=== PATIENT | female | born 1980 | race Caucasian/White ===

== ENCOUNTER 2018-04-14 15:37 | Inpatient (IN) ==
[2018-04-14] MEDS ORDERED: Sodium Chlor 0.9% Inj 500 ML IV.SIG PRN (16:29)
[2018-04-14] MEDS ORDERED: Penicillin G Potassium Inj 5,000,000 UNIT in Sodium Chloride 0.9% Inj 100 ML IV.SIG ONE (16:29)
[2018-04-14] MEDS ORDERED: Sod Chloride 0.9% Inj 1,000 ML IV.CONT PRN (16:29)
[2018-04-14] MEDS ORDERED: Naloxone Inj 0.4 MG/ML Vial IV.PUSH PRN ×2 (16:29→21:12)
[2018-04-14] MEDS ORDERED: fentaNYL Citrate Inj 100 MCG/2 ML Ampul IV.PUSH PRN ×2 (16:29)
[2018-04-14] MEDS ORDERED: Oxytocin 30 Units/500ml Premix 30 UNITS/500 ML BAG IV.SIG ONE (16:29)
[2018-04-14] MEDS ORDERED: Citric Acid/Sodium Citrate Liq 30 ML UDC PO SCH (16:30)
--- NOTE | 2018-04-14 16:35 | P.HPOB ---
History of Present Illness Primary Care Physician: No Primary Care Physician Dr. Herndon Chief Complaint: Contractions History of Present Illness: The patient is 38-year-old white female at [address] Herndon at the [facility] and presents complaining of painful contractions that are regular at this time is been going on since this morning, she denies bleeding or leakage of fluid, heart rate tracing is reactive she is amirah every other minute Weeks Gestation:: 37 Para: 1 : 2 Review of Systems All other systems reviewed negative except as stated in HPI PMFSH - Social History I have reviewed the patient's Social History: Yes - Tobacco History Smoking Status: Never smoker - Alcohol History How Often Do You Have a Drink Containing Alcohol: Never - Substance Use History Substance History: No History of Abuse - Travel History History of Recent Travel: No Recent Travel in the [place] Within the Last 8 Weeks: No Recent Travel Out of the Country Within the Last 8 Weeks: No Medications and Allergies Allergies Allergy/AdvReac Type Severity Reaction Status Date / Time zinc AdvReac Intermediate NAUSEA Verified 06/29/17 08:46 zinc oxide AdvReac Intermediate NAUSEA Verified 06/29/17 08:46 Exam Vital signs: Vital Signs 04/14/18 16:10 Temperature 98.6 F Pulse Rate 98 H Respiratory Rate 20 Blood Pressure 140/49 L Intake & Output 04/13/18 04/14/18 04/14/18 18:59 06:59 18:59 Weight 80.286 kg Narrative: GENERAL: Well-nourished, well-developed patient. SKIN: Warm and dry. HEAD: Normocephalic and atraumatic. EYES: No scleral icterus. No injection or drainage. ENT: No nasal drainage noted. Mucous membranes pink. Airway patent. NECK: Supple, trachea midline. No JVD. CARDIOVASCULAR: Regular rate and rhythm without murmurs, gallops, or rubs. RESPIRATORY: Breath sounds equal bilaterally. No accessory muscle use. BREASTS: Bilateral exam showed no masses , no retractions, no nipple discharge. ABDOMEN/GI: Abdomen soft, non-tender, bowel sounds present, no rebound, no guarding Gravid to [37-] weeks size Fundal Height: [37-] GENITOURINARY: External Genitalia: intact and normal in appearance BUS glands: [-] Cervix: [post-] Dilatation: [-4] Effacement: [80-] Station: [-3] Presentation: [vtx-] Membranes: [intact ] Uterine Contractions: [q 2 min-] FHT's: Category: [1-] Baseline: [133-] Reactive: [R-] Variability: [mod-] Decels: [0-] EXTREMITIES: No cyanosis or edema. BACK: Nontender without obvious deformity. No CVA tenderness. NEUROLOGICAL: Awake and alert. Motor and sensory grossly within normal limits. Five out of 5 muscle strength in all muscle groups. Normal speech. Results - Labs Group B Strep: Positive Caprini VTE Risk Assessment Caprini VTE Risk Assessment: No/Low Risk (score <= 1) Caprini Risk Assessment Model: Point Value = 1 Point Value = 2 Point Value = 3 Point Value = 5 Age 41-60 Minor surgery BMI > 25 kg/m2 Swollen legs Varicose veins or History of unexplained or recurrent spontaneous Oral contraceptives or hormone replacement Sepsis (< 1 month) Serious lung disease, including pneumonia (< 1 month) Abnormal pulmonary function Acute myocardial infarction Congestive heart failure (< 1 month) History of inflammatory bowel disease Medical patient at bed rest Age 61-74 Arthroscopic surgery Major open surgery (> 45 min) Laparoscopic surgery (> 45 min) Malignancy Confined to bed (> 72 hours) Immobilizing plaster cast Central venous access Age >= 75 History of VTE Family history of VTE Factor V Leiden Prothrombin [id number] Lupus anticoagulant Anticardiolipin antibodies Elevated serum homocysteine Heparin-induced thrombocytopenia Other congenital or acquired thrombophilia Stroke (< 1 month) Elective arthroplasty Hip, pelvis, or leg fracture Acute spinal cord injury (< 1 month) Prophylaxis Regimen: Total Risk Factor Score Risk Level Prophylaxis Regimen 0-1 Low Early ambulation 2 Moderate Order ONE of the following: *Sequential Compression Device (SCD) *Heparin 5000 units SQ BID 3-4 Higher Order ONE of the following medications: *Heparin 5000 units SQ TID *Enoxaparin/Lovenox 40 mg SQ daily (WT < 150 kg, CrCl > 30 mL/min) *Enoxaparin/Lovenox 30 mg SQ daily (WT < 150 kg, CrCl > 10-29 mL/min) *Enoxaparin/Lovenox 30 mg SQ BID (WT < 150 kg, CrCl > 30 mL/min) AND/OR *Sequential Compression Device (SCD) 5 or more Highest Order ONE of the following medications: *Heparin 5000 units SQ TID (Preferred with Epidurals) *Enoxaparin/Lovenox 40 mg SQ daily (WT < 150 kg, CrCl > 30 mL/min) *Enoxaparin/Lovenox 30 mg SQ daily (WT < 150 kg, CrCl > 10-29 mL/min) *Enoxaparin/Lovenox 30 mg SQ BID (WT < 150 kg, CrCl > 30 mL/min) AND *Sequential Compression Device (SCD) Assessment and Plan - Diagnosis (1) Uterine contractions during Code(s): O62.2 - Other uterine inertia Status: Acute (2) 37 weeks gestation of Code(s): Z3A.37 - 37 weeks gestation of Status: Acute - Plan This multiparous patient is 37 weeks in early labor at this time, cervix is 4/80 /-3/vertex. Contractions are frequent every other minute or so and she says are painful but yet she is able to act like she is not really hurting that much when she is having them. The NST is reactive contractions are regular and her GBS is positive. Plan to admit to the hospital managed augment labor as needed anticipate vaginal delivery will discuss with her private OB doctor
[2018-04-14] MEDS ORDERED: Lidocaaine 1.5%/Epinephrine 1:200,000 PF Inj 5 ML Amp ONE (17:44)
[2018-04-14] MEDS ORDERED: Lidocaine PF 1% Inj 10 ML Amp ONE (17:45)
[2018-04-14 17:50] LABS: Bacteria,Urine Occasional /hpf; Bilirubin,Urine Negative (Negative); Clarity,Urine Clear (Clear); Color,Urine Straw (Yellw/Straw); Glucose,Urine (UA) Negative (Negative); Leukocyte Esterase,Urine Negative (Negative); Nitrite,Urine Negative (Negative); Specific Gravity,Urine 1.005 (1.002-1.035); Squamous Epithelial Cell,Urine 7 /hpf (0-5)
[2018-04-14 17:52] LABS: Amphetamine Urine With Conf Neg (Neg); Benzodiazepine Urine With Conf Neg (Neg)
[2018-04-14] MEDS ORDERED: fentaNYL 2MCG-Bupiv 0.125% Epi 150 ML EPIDURAL ONE (17:53)
[2018-04-14 17:54] LABS: Baso % (Auto) 0.4 % (0.0-2.0); Eos % (Auto) 0.4 % (0.0-4.0); Hematocrit 32.9 % (35.0-46.0); Hemoglobin 11.2 gm/dL (11.6-15.3); Lymph # (Auto) 2.7 th/mm3 (1.0-4.8); Lymph % (Auto) 26.5 % (9.0-44.0); Mean Corpuscular Hemoglobin 29.3 pg (27.0-34.0); Mean Corpuscular Volume 86.2 fL (80.0-100.0); Mean Platelet Volume 9.1 fL (7.0-11.0); Mono # (Auto) 0.5 th/mm3 (0.0-0.9); Mono % (Auto) 5.1 % (0.0-8.0); Neut # (Auto) 6.8 th/mm3 (1.8-7.7); Neut % (Auto) 67.6 % (16.0-70.0); Platelet Count 233 th/mm3 (150-450); Red Blood Count 3.81 mil/mm3 (4.00-5.30); Red Cell Distribution Width 12.4 % (11.6-17.2); White Blood Count 10.1 th/mm3 (4.0-11.0)
--- NOTE | 2018-04-14 18:28 | P.OBLABOR ---
Subjective Interval history: meeting for first time just after epidural placed. She is comfortable. Penicillin ongoing for presumed GBS (was positive with first child) Objective Vital Signs: Vital Signs - 8 hr 04/14/18 16:10 04/14/18 17:48 04/14/18 17:49 Temperature 98.6 F Pulse Rate 98 H 91 H Respiratory Rate 20 18 Blood Pressure 140/49 L 118/69 04/14/18 17:55 04/14/18 18:01 04/14/18 18:07 Temperature Pulse Rate 84 101 H 112 H Respiratory Rate Blood Pressure 130/69 123/64 04/14/18 18:09 04/14/18 18:10 04/14/18 18:15 Temperature Pulse Rate 139 H 112 H Respiratory Rate 18 18 Blood Pressure 105/55 L 113/57 L Objective: 90%/5-6/0 station EFW 7 pounds pelvis proven and clinically adequate strip category one Patient Started Active Labor: Yes Medical Induction of Labor: No Artificial Rupture of Membrane: Yes Artificial ROM Date: 04/14/18 Artificial ROM Time: 18:27 Assessment and Plan - Diagnosis (1) GBS carrier Code(s): Z22.330 - Carrier of Group B streptococcus Status: Acute - Plan This multiparous patient is 37 weeks in early labor at this time, cervix is 4/80 /-3/vertex. Contractions are frequent every other minute or so and she says are painful but yet she is able to act like she is not really hurting that much when she is having them. The NST is reactive contractions are regular and her GBS is positive. Plan to admit to the hospital managed augment labor as needed anticipate vaginal delivery will discuss with her private OB doctor 04/14/18 18:00 anticipate soon
--- NOTE | 2018-04-14 20:06 | P.OBLABOR ---
Subjective Interval history: Has some pain on right side only Objective Vital Signs: Vital Signs - 8 hr 04/14/18 16:10 04/14/18 17:48 04/14/18 17:49 Temperature 98.6 F Pulse Rate 98 H 91 H Respiratory Rate 20 18 Blood Pressure 140/49 L 118/69 04/14/18 17:55 04/14/18 18:01 04/14/18 18:07 Temperature Pulse Rate 84 101 H 112 H Respiratory Rate Blood Pressure 130/69 123/64 04/14/18 18:09 04/14/18 18:10 04/14/18 18:15 Temperature Pulse Rate 139 H 112 H Respiratory Rate 18 18 Blood Pressure 105/55 L 113/57 L 04/14/18 18:30 04/14/18 18:43 04/14/18 19:10 Temperature Pulse Rate 108 H 120 H 92 H Respiratory Rate 18 Blood Pressure 108/70 108/57 L 04/14/18 19:40 04/14/18 19:45 04/14/18 19:50 Temperature Pulse Rate 110 H 100 H 105 H Respiratory Rate Blood Pressure 04/14/18 19:51 04/14/18 19:53 Temperature Pulse Rate 114 H Respiratory Rate 18 Blood Pressure 110/79 Objective: 8-9/100/0 remaining cervix on her right strip category one contractions every 2-3 minutes Assessment and Plan - Diagnosis (1) GBS carrier Code(s): Z22.330 - Carrier of Group B streptococcus Status: Acute - Plan This multiparous patient is 37 weeks in early labor at this time, cervix is 4/80 /-3/vertex. Contractions are frequent every other minute or so and she says are painful but yet she is able to act like she is not really hurting that much when she is having them. The NST is reactive contractions are regular and her GBS is positive. Plan to admit to the hospital managed augment labor as needed anticipate vaginal delivery will discuss with her private OB doctor 04/14/18 18:00 anticipate soon 04/14/18 20:00 delivery soon
[2018-04-14] MEDS ORDERED: Penicillin G Potassium Inj 2,500,000 UNIT in Sodium Chlor 0.9% Inj 100 ML IV.SIG SCH (20:30)
[2018-04-14] MEDS ORDERED: Benzocaine 20% Top Spray 60 ML Can TOPICAL PRN (21:12)
[2018-04-14] MEDS ORDERED: Witch Hazel 50%/Glyderin 12.5% 40 Pad Jar RECTAL PRN (21:12)
[2018-04-14] MEDS ORDERED: Acetaminophen 325 MG Tablet PO PRN (21:12)
[2018-04-14] MEDS ORDERED: Zolpidem Tartrate 5 MG Tablet PO PRN (21:12)
[2018-04-14] MEDS ORDERED: Bisacodyl 10 MG Supp RECTAL PRN (21:12)
[2018-04-14] MEDS ORDERED: Oxytocin 30 Units/500ml Premix 30 UNITS/500 ML BAG IV.CONT PRN (21:12)
--- NOTE | 2018-04-14 21:12 | P.OBDELI ---
Weeks Gestation: 37 Anesthesia: Epidural Episiotomy: none Vaginal Delivery: Normal Presentation: Occiput anterior Nuchal Cord: None Delayed Cord Clamping (45 sec): Yes Estimated blood loss (mL): 200 Infant: Female Female A Infant Delivery Date: 04/14/18 Delivery Time: 21:11 score (1 min): 9 score (5 min): 9 Additional Information: placenta intact with 3 VC CBR kit used for cord blood collection no issues.
[2018-04-14] MEDS ORDERED: fentaNYL Citrate Inj 100 MCG/2 ML Ampul EPIDURAL ONE (21:45)
[2018-04-14] MEDS ORDERED: fentaNYL 2MCG-Bupiv 0.125% Epi 150 ML EPIDURAL PRN (21:45)
--- NOTE | 2018-04-15 07:55 | P.PNOB ---
Subjective Post day: 1 Interval history: doing well, Objective Vital Signs/I&O: Vital Signs 04/14/18 16:10 04/14/18 17:48 04/14/18 17:49 Temperature 98.6 F Pulse Rate 98 H 91 H Respiratory Rate 20 18 Blood Pressure 140/49 L 118/69 04/14/18 17:55 04/14/18 18:01 04/14/18 18:07 Temperature Pulse Rate 84 101 H 112 H Respiratory Rate Blood Pressure 130/69 123/64 04/14/18 18:09 04/14/18 18:10 04/14/18 18:15 Temperature Pulse Rate 139 H 112 H Respiratory Rate 18 18 Blood Pressure 105/55 L 113/57 L 04/14/18 18:30 04/14/18 18:43 04/14/18 19:10 Temperature Pulse Rate 108 H 120 H 92 H Respiratory Rate 18 Blood Pressure 108/70 108/57 L 04/14/18 19:40 04/14/18 19:45 04/14/18 19:50 Temperature Pulse Rate 110 H 100 H 105 H Respiratory Rate Blood Pressure 04/14/18 19:51 04/14/18 19:53 04/14/18 19:55 Temperature Pulse Rate 114 H 108 H Respiratory Rate 18 Blood Pressure 110/79 111/96 H 04/14/18 20:05 04/14/18 20:10 04/14/18 20:25 Temperature Pulse Rate 116 H 99 H 108 H Respiratory Rate Blood Pressure 116/76 04/14/18 20:30 04/14/18 20:35 04/14/18 20:45 Temperature Pulse Rate 109 H 113 H 107 H Respiratory Rate Blood Pressure 118/54 L 04/14/18 20:55 04/14/18 21:15 04/14/18 21:18 Temperature Pulse Rate 169 H 81 Respiratory Rate 18 Blood Pressure 90/45 L 78/56 L 04/14/18 21:30 04/14/18 21:45 04/14/18 22:00 Temperature Pulse Rate 110 H 103 H 99 H Respiratory Rate 18 Blood Pressure 96/47 L 99/56 L 107/62 04/14/18 22:03 04/14/18 22:15 04/14/18 22:30 Temperature 97.8 F Pulse Rate 101 H 92 H Respiratory Rate 18 Blood Pressure 125/71 115/64 04/14/18 23:45 Temperature 98.3 F Pulse Rate 88 Respiratory Rate 18 Blood Pressure 102/62 Intake & Output 04/14/18 04/15/18 04/15/18 18:59 06:59 18:59 Intake Total 100 / 100 Balance 100 / 100 Weight 80.286 kg Intake: IV 100 / 100 Pfizerpen-G Inj 5,000,000 UNIT 100 / 100 In NS Inj 100 ML @ 200 mls/hr IV.SIG ONCE ONE Rx#:[id number] Result Diagrams: 04/14/18 17:01 Objective Remarks: GENERAL: Well-nourished, well-developed patient. CARDIOVASCULAR: Regular rate and rhythm without murmurs, gallops, or rubs. RESPIRATORY: Breath sounds equal bilaterally. No accessory muscle use. ABDOMEN/GI: Abdomen soft, non-tender. Fundus: Firm, non-tender at umbilicus. GENITOURINARY: Light to moderate bleeding. EXTREMITIES: No cyanosis or edema, non-tender, without signs of DVT. Medications and IVs: Active Medications Acetaminophen (Tylenol) 650 mg PO Q4H PRN PRN Reason: PAIN SCALE 1 TO 2 Al Hydroxide/Mg Hydroxide (Milk Of Magnesia Liq) 30 ml PO Q12H PRN PRN Reason: Mild Constipation Benzocaine (Americaine 20% Top [place]) 1 spray TOPICAL Q4H PRN PRN Reason: For Perineum Discomfort Bisacodyl (Dulcolax Supp) 10 mg RECTAL DAILY PRN PRN Reason: SEVERE CONSITIPATION Citric Acid/Sodium Citrate (Sodium Citrate/Citric Acid Liq) 30 ml PO ELIGIBILITY EXAMINER [facility] Stop: 04/18/18 16:29 Diphtheria/Pertussis/Tetanus Vacc (Boostrix Vaccine Inj) 0.5 ml IM .ONCE ONE Stop: 04/15/18 16:01 Ephedrine Sulfate (Ephedrine/Ns Syringe) 10 mg IV.PUSH UNSCH PRN PRN Reason: SEE LABEL COMMENTS Stop: 04/15/18 21:45 Fentanyl Citrate (Fentanyl Inj) 50 mcg IV.PUSH Q1H PRN PRN Reason: Pain Scale 3 - 5 Fentanyl Citrate (Fentanyl Inj) 100 mcg IV.PUSH Q1H PRN PRN Reason: PAIN SCALE 6 TO 10 Lactated Ringer's (Lr 1000 Ml Inj) 1,000 mls @ 3,000 mls/hr IV.SIG UNSCH PRN PRN Reason: compromise or epidural Lactated Ringer's (Lr 1000 Ml Inj) 1,000 mls @ 125 mls/hr IV.CONT .Q8H ADILENE Sodium Chloride (Ns Inj) 500 mls @ 1,000 mls/hr IV.SIG UNSCH PRN PRN Reason: SEE LABEL COMMENTS Sodium Chloride (Ns Inj) 1,000 mls @ 100 mls/hr IV.CONT .Q10H PRN PRN Reason: SEE LABEL COMMENTS Penicillin G Potassium 2,500, (000 unit/ Sodium Chloride) 100 mls @ 200 mls/hr IV.SIG Q4H ADILENE Oxytocin (Pitocin 30 Units/Ns 500 Ml Premix) 30 units in 500 mls @ 100 mls/hr IV.CONT UNSCH PRN PRN Reason: Heavy bleeding Last Admin: 04/14/18 22:52 Dose: 999 mls/hr Fentanyl/Bupivacaine/Sodium Chlor (Fentanyl 2 Mcg-Bupiv 0.125% Epi) 150 mls @ 11 mls/hr EPIDURAL PRN PRN PRN Reason: for Labor Pain Last Admin: 04/14/18 18:30 Dose: 11 mls/hr Ibuprofen (Motrin) 800 mg PO Q8H PRN PRN Reason: For Cramping Influenza Virus Vaccine (Fluarix (Quad) Vaccine Inj) 0.5 ml IM .ONCE ONE Stop: 04/15/18 09:01 Lactulose (Lactulose Liq) 30 ml PO DAILY PRN PRN Reason: SEVERE CONSITIPATION Lidocaine HCl (Xylocaine 1% Inj) 0.1 ml I-DERMAL PRN PRN PRN Reason: For IV start Stop: 04/17/18 16:28 Lidocaine HCl (Xylocaine 1% Inj) 10 ml INFILTRATN PRN PRN PRN Reason: For episiotomy repair Stop: 04/16/18 16:28 Measles/Mumps/Rubella Vaccine Live (M-M-R Ii Vaccine Inj) 0.5 ml SQ .ONCE ONE Stop: 04/15/18 16:01 Mineral Oil (Muri-Lube Oil) 10 ml TOPICAL PRN PRN PRN Reason: PRN perineal massage Miscellaneous Information (Misc Information) 1 each OTHER UNSCH PRN PRN Reason: SEE LABEL COMMENTS Stop: 04/15/18 21:45 Miscellaneous Information (Misc Information) 1 each OTHER UNSCH PRN PRN Reason: SEE LABEL COMMENTS Stop: 04/15/18 21:45 Naloxone HCl (Narcan Inj) 0.1 mg IV.PUSH Q2M PRN PRN Reason: for opiate reversal Naloxone HCl (Narcan Inj) 0.1 mg IV.PUSH Q2M PRN PRN Reason: for opiate reversal Ondansetron HCl (Zofran Odt) 4 mg PO Q6H PRN PRN Reason: NAUSEA OR VOMITING Senna/Docusate Sodium (Vaishali-Colace) 1 tab PO BID ADILENE Sennosides (Senokot) 17.2 mg PO Q12H PRN PRN Reason: Moderate Constipation Sodium Chloride (Ns Flush) 2 ml IV.FLUSH BID ADILENE Sodium Chloride (Ns Flush) 2 ml IV.FLUSH PRN PRN PRN Reason: FLUSH AFTER USING IV ACCESS Witch Lori/Glycerin (Tucks Pads) 1 applicatio RECTAL QID PRN PRN Reason: HEMORRHOIDS Zolpidem Tartrate (Ambien) 5 mg PO HS PRN PRN Reason: SLEEP Assessment and Plan - Diagnosis (1) GBS carrier Code(s): Z22.330 - Carrier of Group B streptococcus Status: Acute (2) Vaginal delivery Code(s): O80 - Encounter for full-term uncomplicated delivery Status: Acute (3) 37 weeks gestation of Code(s): Z3A.37 - 37 weeks gestation of Status: Acute - Plan s/p PPD #1 female , continue post care anticipate d/c home in am Discharge Planning: routine - Attending Attestation pt seen by me
[2018-04-15] MEDS ORDERED: Influenza (Quadrivalent) Vaccine 0.5 ML Syringe IM ONE (09:00)
[2018-04-15] MEDS: Senna/Docusate Sodium 8.6/50 MG Tablet PO SCH ×2 (09:50→21:08)
[2018-04-15] MEDS ORDERED: Measles/Mumps/Rubella Vaccine Inj 0.5 ML Vial SQ ONE (16:00)
[2018-04-15] MEDS ORDERED: Diphtheria/Tetanus/Pertussis Vaccine Inj 0.5 ML Syringe IM ONE (16:00)
--- NOTE | 2018-04-16 07:46 | P.PNOB ---
Subjective Post day: 2 Interval history: PPD#2; Stable, doing well. Plan discharge to home. Objective Vital Signs/I&O: Vital Signs 04/15/18 07:55 04/15/18 11:45 04/15/18 17:25 Temperature 98.4 F Pulse Rate 73 80 71 Respiratory Rate 18 16 Blood Pressure 93/59 L 110/67 108/70 04/15/18 19:55 Temperature 97.9 F Pulse Rate 83 Respiratory Rate 18 Blood Pressure 90/59 L Result Diagrams: 04/14/18 17:01 Objective Remarks: GENERAL: Well-nourished, well-developed patient. CARDIOVASCULAR: Regular rate and rhythm without murmurs, gallops, or rubs. RESPIRATORY: Breath sounds equal bilaterally. No accessory muscle use. ABDOMEN/GI: Abdomen soft, non-tender. Fundus: Firm, non-tender at umbilicus. GENITOURINARY: Light to moderate bleeding. EXTREMITIES: No cyanosis or edema, non-tender, without signs of DVT. Medications and IVs: Active Medications Acetaminophen (Tylenol) 650 mg PO Q4H PRN PRN Reason: PAIN SCALE 1 TO 2 Al Hydroxide/Mg Hydroxide (Milk Of Magnesia Liq) 30 ml PO Q12H PRN PRN Reason: Mild Constipation Benzocaine (Americaine 20% Top [place]) 1 spray TOPICAL Q4H PRN PRN Reason: For Perineum Discomfort Last Admin: 04/15/18 20:17 Dose: 1 spray Bisacodyl (Dulcolax Supp) 10 mg RECTAL DAILY PRN PRN Reason: SEVERE CONSITIPATION Citric Acid/Sodium Citrate (Sodium Citrate/Citric Acid Liq) 30 ml PO [employer]S DIRECTOR [facility] Stop: 04/18/18 16:29 Fentanyl Citrate (Fentanyl Inj) 50 mcg IV.PUSH Q1H PRN PRN Reason: Pain Scale 3 - 5 Fentanyl Citrate (Fentanyl Inj) 100 mcg IV.PUSH Q1H PRN PRN Reason: PAIN SCALE 6 TO 10 Lactated Ringer's (Lr 1000 Ml Inj) 1,000 mls @ 3,000 mls/hr IV.SIG UNSCH PRN PRN Reason: compromise or epidural Lactated Ringer's (Lr 1000 Ml Inj) 1,000 mls @ 125 mls/hr IV.CONT .Q8H [facility] Sodium Chloride (Ns Inj) 500 mls @ 1,000 mls/hr IV.SIG UNSCH PRN PRN Reason: SEE LABEL COMMENTS Sodium Chloride (Ns Inj) 1,000 mls @ 100 mls/hr IV.CONT .Q10H PRN PRN Reason: SEE LABEL COMMENTS Penicillin G Potassium 2,500, (000 unit/ Sodium Chloride) 100 mls @ 200 mls/hr IV.SIG Q4H ADILENE Oxytocin (Pitocin 30 Units/Ns 500 Ml Premix) 30 units in 500 mls @ 100 mls/hr IV.CONT UNSCH PRN PRN Reason: Heavy bleeding Last Admin: 04/14/18 22:52 Dose: 999 mls/hr Fentanyl/Bupivacaine/Sodium Chlor (Fentanyl 2 Mcg-Bupiv 0.125% Epi) 150 mls @ 11 mls/hr EPIDURAL PRN PRN PRN Reason: for Labor Pain Last Admin: 04/14/18 18:30 Dose: 11 mls/hr Ibuprofen (Motrin) 800 mg PO Q8H PRN PRN Reason: For Cramping Last Admin: 04/16/18 04:12 Dose: 800 mg Lactulose (Lactulose Liq) 30 ml PO DAILY PRN PRN Reason: SEVERE CONSITIPATION Lidocaine HCl (Xylocaine 1% Inj) 0.1 ml I-DERMAL PRN PRN PRN Reason: For IV start Stop: 04/17/18 16:28 Lidocaine HCl (Xylocaine 1% Inj) 10 ml INFILTRATN PRN PRN PRN Reason: For episiotomy repair Stop: 04/16/18 16:28 Mineral Oil (Muri-Lube Oil) 10 ml TOPICAL PRN PRN PRN Reason: PRN perineal massage Naloxone HCl (Narcan Inj) 0.1 mg IV.PUSH Q2M PRN PRN Reason: for opiate reversal Naloxone HCl (Narcan Inj) 0.1 mg IV.PUSH Q2M PRN PRN Reason: for opiate reversal Ondansetron HCl (Zofran Odt) 4 mg PO Q6H PRN PRN Reason: NAUSEA OR VOMITING Senna/Docusate Sodium (Vaishali-Colace) 1 tab PO BID [facility] Last Admin: 04/15/18 21:08 Dose: 1 tab Sennosides (Senokot) 17.2 mg PO Q12H PRN PRN Reason: Moderate Constipation Sodium Chloride (Ns Flush) 2 ml IV.FLUSH BID ADILENE Sodium Chloride (Ns Flush) 2 ml IV.FLUSH PRN PRN PRN Reason: FLUSH AFTER USING IV ACCESS Witch Lori/Glycerin (Tucks Pads) 1 applicatio RECTAL QID PRN PRN Reason: HEMORRHOIDS Last Admin: 04/15/18 20:18 Dose: 1 applicatio Zolpidem Tartrate (Ambien) 5 mg PO HS PRN PRN Reason: SLEEP Assessment and Plan - Diagnosis (1) GBS carrier Code(s): Z22.330 - Carrier of Group B streptococcus Status: Acute (2) Vaginal delivery Code(s): O80 - Encounter for full-term uncomplicated delivery Status: Acute (3) 37 weeks gestation of Code(s): Z3A.37 - 37 weeks gestation of Status: Acute - Plan s/p PPD #2 female , continue post care anticipate d/c home today Discharge Planning: routine
[2018-04-16] MEDS: Senna/Docusate Sodium 8.6/50 MG Tablet PO SCH (09:38)
[2018-04-16 20:18] VITALS: BP 115/78; PULSE 75; RESP 18; TEMP 98.4
== END 2018-04-16 21:01 | disposition home or self-care (01) ==
LOC: HOBED 15:37 → H2E 16:32 → H1EA 23:38
PROVIDERS: ADMIT Obstetrics & Gynecology; ATTEND Obstetrics & Gynecology